=== PATIENT | male | born 1950 | race Caucasian/White ===

== ENCOUNTER 2018-04-08 06:58 | Emergency (ER) | payer MEDICARE, OTHER ==
[2018-04-08] MEDS ORDERED: NITROGLYCERIN SL 0.4 MG TABLET SL STA (07:13)
[2018-04-08] MEDS ORDERED: ASPIRIN CHEW 81 MG TABLET PO STA (07:13)
--- NOTE | 2018-04-08 07:17 | ED Physician Documentation ---
PD HPI CHEST PAIN - Stated complaint Stated Complaint: SOA,CHEST PX,L ARM NUMBNESS - Chief complaint Chief Complaint: Cardiac - History obtained from History obtained from: Patient - History of Present Illness Timing - onset: How many hours ago (1) Timing - onset during: Exertion (Walking at [place]) Timing - duration: Hours (1) Timing - details: Still present Pain level now: 9 Quality: Pain Location: Substernal Radiation: Left upper extremity Associated symptoms: Shortness of air, Diaphoresis. No: Nausea, Vomiting Similar symptoms before: Has not had sx before - Additional information Additional information: The patient is an otherwise healthy 67-year-old male who presents with substernal chest pain that started about 1 hour prior to arrival while he was walking on [place]. The pain radiates to his left shoulder. He reports associated mild shortness of breath, and diaphoresis. He denies nausea or vomiting. He denies history of similar symptoms in the past. He takes no medications. He has no history of diabetes or hypertension. He does report history of hyperlipidemia. He quit smoking cigarettes in 1974. He has no family history of early OR. Review of Systems Constitutional: denies: Fever Ears: denies: Tinnitus/ringing Nose: denies: Congestion Throat: denies: Sore throat Cardiac: reports: Chest pain / pressure Respiratory: reports: Dyspnea (mild). denies: Cough GI: denies: Abdominal Pain, Nausea, Vomiting : denies: Dysuria Skin: denies: Rash Musculoskeletal: denies: Back pain Neurologic: denies: Focal weakness, Numbness, Headache PD PAST MEDICAL HISTORY - Past Medical History Cardiovascular: High cholesterol Respiratory: None Neuro: None Endocrine/Autoimmune: None - Present Medications Home Medications: Ambulatory Orders Medication Instructions Recorded Confirmed No Known Home Medications [No 04/08/18 04/08/18 Known Home Medications] - Allergies Allergies/Adverse Reactions: Allergies Allergy/AdvReac Type Severity Reaction Status Date / Time Penicillins Allergy Hives Verified 04/08/18 07:23 PD ED PE NORMAL - Vitals Vital signs reviewed: Yes (Initially hypertensive.) - General General: Alert and oriented X 3, Well developed/nourished - HEENT HEENT: Atraumatic, Moist mucous membranes - Neck Neck: No adenopathy, No JVD - Cardiac Cardiac: RRR, No murmur - Respiratory Respiratory: No respiratory distress, Clear bilaterally - Abdomen Abdomen: Soft, Non tender - Back Back: No CVA TTP - Derm Derm: No rash - Extremities Extremities: No edema, No calf tenderness / cord - Neuro Neuro: Alert and oriented X 3, No motor deficit, Normal speech Results - Vitals Vitals: Vital Signs - 24 hr 04/08/18 04/08/18 04/08/18 07:00 07:20 07:23 Temperature 36.0 C L Heart Rate 79 79 94 Respiratory 12 18 19 Rate Blood Pressure 144/100 H 141/94 H 141/94 H O2 Saturation 99 97 97 04/08/18 04/08/18 07:25 07:43 Temperature Heart Rate 80 77 Respiratory 20 20 Rate Blood Pressure 118/81 H 128/74 O2 Saturation 95 98 Oxygen O2 Source Room air - EKG (time done) 07:07 Rate: Rate (enter#) (83) Rhythm: NSR [place]: LAD Intervals: Prolonged OK Ischemia: ST elevation c/w ischemia Other comments: Other comments (ST elevation in anterolateral leads I, aVL, and V1 through V5, with reciprocal ST depression in inferior leads III and aVF, consistent with acute anterolateral OR.) Computer interpretation: Disagree with computer - Labs Labs: Laboratory Tests 04/08/18 04/08/18 04/08/18 07:05 07:05 07:05 WBC 9.2 RBC 5.43 Hgb 16.6 Hct 49.0 MCV 90.1 MCH 30.6 MCHC 34.0 RDW 12.7 Plt Count 271 MPV 8.0 Neut # (Auto) 4.7 Lymph # (Auto) 3.6 H [place] # (Auto) 0.7 Eos # (Auto) 0.1 Baso # (Auto) 0.1 Absolute Nucleated RBC 0.01 Nucleated RBC % 0.1 Sodium 136 Potassium 3.4 L Chloride 99 L Carbon Dioxide 26 Anion Gap 11.0 BUN 23 H Creatinine 1.3 H Estimated GFR (MDRD) 55 L Glucose 189 H Calcium 9.4 Magnesium 1.7 Total Bilirubin 1.2 H AST 27 ALT 23 Alkaline Phosphatase 87 Troponin I 0.11 Total Protein 7.6 Albumin 4.1 Globulin 3.5 Albumin/Globulin Ratio 1.2 Lipase 23 PD MEDICAL DECISION MAKING - ED course Complexity details: reviewed results, re-evaluated patient, considered differential, d/w patient, d/w customer support consultant ED course: The patient's presentation is significant for acute anterolateral OR, with ST elevations in leads I, aVL, and V1 through V5, with reciprocal ST depressions in inferior leads III and aVF. Treatment in the emergency department included administration of 4 baby aspirin orally, sublingual nitroglycerin 2, nitroglycerin infusion, and heparin bolus and infusion, as per cardiac protocol. I discussed his condition with the emergency physician at [facility]. Dr. Xiong accepts the patient in transfer. Transfer forms were completed. - Critical Care Time(min): 30 Time Includes: Direct patient care, Reassess patient, Document care, Coordinate care Data interpretation: Labs Procedures excluded from critical care time: EKG - Sepsis Event Vital Signs: Vital Signs - 24 hr 04/08/18 04/08/18 04/08/18 07:00 07:20 07:23 Temperature 36.0 C L Heart Rate 79 79 94 Respiratory 12 18 19 Rate Blood Pressure 144/100 H 141/94 H 141/94 H O2 Saturation 99 97 97 04/08/18 04/08/18 07:25 07:43 Temperature Heart Rate 80 77 Respiratory 20 20 Rate Blood Pressure 118/81 H 128/74 O2 Saturation 95 98 Oxygen O2 Source Room air Departure - Departure Disposition: 02 Transfer Acute Care Hosp Clinical Impression: Myocardial infarction Qualifiers: Myocardial infarction type: ST elevation myocardial infarction Condition: Critical Discharge Date/Time: 04/08/18 07:55
[2018-04-08 07:19] LABS: BASOPHILS # (AUTO) 0.1 10^3/uL (0.0-0.1); BASOPHILS % (AUTO) 1.2 %; EOSINOPHILS # (AUTO) 0.1 10^3/uL (0.0-0.7); EOSINOPHILS % (AUTO) 0.6 %; HGB - HEMOGLOBIN 16.6 g/dL (14.0-18.0); LYMPHOCYTES # (AUTO) 3.6 10^3/uL (1.5-3.5); LYMPHOCYTES % (AUTO) 38.8 %; MEAN CORPUSCULAR HEMOGLOBIN 30.6 pg (27.0-31.0); MEAN CORPUSCULAR VOLUME 90.1 fL (80.0-94.0); MONOCYTES # (AUTO) 0.7 10^3/uL (0.0-1.0); MONOCYTES % (AUTO) 7.9 %; NEUTROPHILS # (AUTO) 4.7 10^3/uL (1.5-6.6); NEUTROPHILS % (AUTO) 51.5 %; PLT - PLATELET COUNT 271 10^3/uL (130-450); RED BLOOD COUNT 5.43 10^6/uL (4.70-6.10); RED CELL DISTRIBUTION WIDTH 12.7 % (12.0-15.0); WHITE BLOOD COUNT 9.2 x10^3/uL (4.8-10.8)
[2018-04-08] MEDS ORDERED: SODIUM CHLORIDE 0.9% 1,000 ML IV ONE (07:20)
[2018-04-08] MEDS ORDERED: HEPARIN 5,000 UNIT/ML VIAL IVP ONE (07:27)
[2018-04-08] MEDS ORDERED: HEPARIN 25000UNITS/500ML (D5W) 25,000 UNIT/500 ML BAG IV STA (07:28)
[2018-04-08 07:30] LABS: ALBUMIN 4.1 g/dL (3.2-5.5); ALBUMIN/GLOBULIN RATIO 1.2 (1.0-2.2); BILIRUBIN,TOTAL 1.2 mg/dL (0.2-1.0); CALCIUM 9.4 mg/dL (8.5-10.3); CREATININE 1.3 mg/dL (0.6-1.2); MAGNESIUM 1.7 mg/dL (1.7-2.8); TOTAL PROTEIN 7.6 g/dL (6.7-8.2)
[2018-04-08 07:45] VITALS: BP 128/74
[2018-04-08] MEDS ORDERED: NITROGLYCERIN 50 MG/250 ML 50 MG/250 ML BOTTLE IV SCH (08:00)
--- NOTE | 2018-04-08 08:30 | XRAY Report ---
Procedure Date: 04/08/2018 Accession Number: [id number] / [id number] Procedure: XR - Chest 1 View X-Ray CPT Code: 79334 FULL RESULT: EXAM: CHEST RADIOGRAPHY EXAM DATE: 04/08/2018 07:26 AM. CLINICAL HISTORY: Chest pain. COMPARISON: None. TECHNIQUE: 1 view. FINDINGS: Lungs/Pleura: No focal opacities evident. No pleural effusion. No pneumothorax. Mediastinum: Within exam limitations, the cardiomediastinal contour is normal. Other: None. IMPRESSION: Normal single view chest. RAD[facility]
== END 2018-04-08 07:55 | disposition short-term general hospital (02) ==
LOC: ED 06:58
DX: I21.3 ST elevation (STEMI) myocardial infarction of unspecified site (principal); E78.00 Pure hypercholesterolemia, unspecified
CPT/HCPCS: 36415; 71045; 80053; 83690; 83735; 84484; 85025; 93005; 96365; 96375; 99284; 99291; A9270

== ENCOUNTER 2018-04-08 07:49 | Outpatient (CLI) | payer MEDICARE, OTHER | END 2018-04-08 07:50 | disposition home or self-care (01) | LOC: EMS 07:49 | PROVIDERS: ATTEND Surgery | DX: I21.9 Acute myocardial infarction, unspecified (principal) | CPT/HCPCS: A0425; A0427 ==